=== PATIENT | female | born 1980 | race Asian ===

== ENCOUNTER 2018-02-01 12:50 | Emergency (ER) | payer OTHER ==
[~2018-02-01] VITALS: Ht 160 cm; Wt 55.8 kg
[2018-02-01 12:55] VITALS: Ht 160 cm; Wt 55.8 kg
[2018-02-01 13:48] VITALS: BP 126/86
== END 2018-02-01 13:51 | disposition home or self-care (01) ==
LOC: ED 12:50
DX: N39.0 Urinary tract infection, site not specified (principal)